=== PATIENT | male | born 1940 | race Caucasian/White ===

== ENCOUNTER 2022-12-05 08:46 | Outpatient (CLI) | payer MEDICARE, OTHER | END 2022-12-05 08:47 | disposition critical access hospital (66) | LOC: EMS 08:46 | DX: R55 Syncope and collapse (principal) | CPT/HCPCS: A0425; A0429 ==

== ENCOUNTER 2022-12-05 09:13 | Emergency (ER) | payer MEDICARE, OTHER ==
[2022-12-05] MEDS ORDERED: SODIUM CHLORIDE 0.9% 1,000 ML IV STA (09:23)
--- NOTE | 2022-12-05 09:25 | ED Physician Documentation ---
PD HPI SYNCOPE - Stated complaint Stated Complaint: SYNCOPE W/DIARRHEA - Chief complaint Chief Complaint: Neuro - History obtained from History obtained from: Patient, EMS - Additional information Additional information: Mr. Rajesh Lancaster ("Jamel" with a silent "K") 82-year-old gentleman with history of hypertension, otherwise healthy without any history of heart problems. He was feeling ill earlier in the week with diarrhea which is since resolved but he does not feel like he was keeping up with fluids. 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 No associated chest pain or trouble breathing. He feels back to normal now. PD PAST MEDICAL HISTORY - Allergies Allergies/Adverse Reactions: Allergies Allergy/AdvReac Type Severity Reaction Status Date / Time No Known Drug Allergies Allergy Verified 12/05/22 09:20 PD ED PE NORMAL - Vitals Vital signs reviewed: Yes - General General: Alert and oriented X 3, No acute distress - HEENT HEENT: Pharynx benign - Neck Neck: Supple, no meningeal sign - Cardiac Cardiac: RRR, No murmur - Respiratory Respiratory: No respiratory distress, Clear bilaterally - Abdomen Abdomen: Non tender - Extremities Extremities: No edema, No calf tenderness / cord - Neuro Neuro: Alert and oriented X 3 Eye Opening: Spontaneous Motor: Obeys Commands Verbal: Oriented GCS Score: 15 Results - Vitals Vitals: Vital Signs - 24 hr 12/05/22 09:15 Temperature 36.2 C L Heart Rate 63 Respiratory 18 Rate Blood Pressure 150/87 H O2 Saturation 98 Oxygen O2 Source Room air - EKG (time done) 0912 EKG releavant findings:: EKG personally interpreted by author of this note. Relevant findings are: Rate: Rate (enter#) (61) Rhythm: NSR [place]: Normal Intervals: Normal NM, RBBB QRS: Normal Ischemia: Normal ST segments - Labs Labs: Laboratory Tests 12/05/22 12/05/22 09:40 09:40 WBC 6.9 RBC 4.55 L Hgb 13.4 L Hct 41.3 L MCV 90.8 MCH 29.5 MCHC 32.4 RDW 13.6 Plt Count 261 MPV 8.7 Neut # (Auto) 5.1 Lymph # (Auto) 1.1 L [place] # (Auto) 0.6 Eos # (Auto) 0.1 Baso # (Auto) 0.0 Absolute Nucleated RBC 0.00 Nucleated RBC % 0.0 Sodium 140 Potassium 3.8 Chloride 107 Carbon Dioxide 26 Anion Gap 7.0 BUN 31 H Creatinine 1.2 Estimated GFR (MDRD) 58 L Glucose 117 H Calcium 9.3 Magnesium 1.8 Total Bilirubin 0.9 AST 14 ALT 14 Alkaline Phosphatase 71 Total Protein 6.5 Albumin 4.0 Globulin 2.5 Albumin/Globulin Ratio 1.6 PD Medical Decision Making - ED course ED course: 82-year-old gentleman had a syncopal episode. This was preceded by diarrheal illness earlier in the week and he does feel dehydrated. He was not injured and there are no other concerning symptoms such as chest pain or trouble breathing. He has a right bundle branch block but this is probably chronic. Otherwise his work-up shows he is very mildly anemic with high BUN, likely related to dehydration. He has no symptoms of GI bleeding. He was hydrated with 1 L of normal saline. Departure - Departure Disposition: 01 Home, Self Care Clinical Impression: Dehydration Syncope Qualifiers: Syncope type: unspecified Qualified Code(s): R55 - Syncope and collapse Condition: Good Record reviewed to determine appropriate education?: Yes Instructions: ED Fainting Unkn Cause, ED Dehydration Comments: Work-up demonstrates that you are mildly anemic and mildly dehydrated. Otherwise everything is looking okay other than noting that you do have a right bundle branch block on EKG which is very unlikely to be related to the current issue. Should be noted to your physician though. Return for new or worsening symptoms, follow-up with your primary care doctor, next available appointment. Drink plenty of fluids. Take it easy for the rest of the day. Forms: PCP List
[2022-12-05 09:44] LABS: BASOPHILS % (AUTO) 0.3 %; EOSINOPHILS # (AUTO) 0.1 10^3/uL (0.0-0.7); EOSINOPHILS % (AUTO) 0.9 %; HCT - HEMATOCRIT 41.3 % (42.0-52.0); HGB - HEMOGLOBIN 13.4 g/dL (14.0-18.0); LYMPHOCYTES # (AUTO) 1.1 10^3/uL (1.5-3.5); LYMPHOCYTES % (AUTO) 16.1 %; MEAN CORPUSCULAR HEMOGLOBIN 29.5 pg (27.0-31.0); MEAN CORPUSCULAR HGB CONC 32.4 g/dL (32.0-36.0); MEAN CORPUSCULAR VOLUME 90.8 fL (80.0-94.0); MEAN PLATELET VOLUME 8.7 fL (7.4-11.4); MONOCYTES # (AUTO) 0.6 10^3/uL (0.0-1.0); NEUTROPHILS # (AUTO) 5.1 10^3/uL (1.5-6.6); NEUTROPHILS % (AUTO) 73.4 %; PLT - PLATELET COUNT 261 10^3/uL (130-450); RED BLOOD COUNT 4.55 10^6/uL (4.70-6.10); RED CELL DISTRIBUTION WIDTH 13.6 % (12.0-15.0); WHITE BLOOD COUNT 6.9 x10^3/uL (4.8-10.8)
[2022-12-05 09:58] LABS: ALBUMIN/GLOBULIN RATIO 1.6 (1.0-2.2); BILIRUBIN,TOTAL 0.9 mg/dL (0.2-1.0); CALCIUM 9.3 mg/dL (8.5-10.3); CREATININE 1.2 mg/dL (0.6-1.3); MAGNESIUM 1.8 mg/dL (1.7-2.3); POTASSIUM 3.8 mmol/L (3.5-4.5); TOTAL PROTEIN 6.5 g/dL (6.4-8.9)
[2022-12-05 10:29] VITALS: BP 134/79; O2SAT 100
== END 2022-12-05 10:18 | disposition home or self-care (01) ==
LOC: EDUNIT# → ED 09:13
DX: E86.0 Dehydration (principal); R55 Syncope and collapse; I10 Essential (primary) hypertension
CPT/HCPCS: 36415; 80053; 83735; 85025; 93005; 96360; 99284

== ENCOUNTER 2023-01-09 08:35 | Outpatient (CLI) | payer MEDICARE, OTHER | END 2023-01-09 23:59 | disposition critical access hospital (66) | LOC: EMS 08:35 | DX: R55 Syncope and collapse (principal) | CPT/HCPCS: A0425; A0429 ==

== ENCOUNTER 2023-01-09 08:58 | Emergency (ER) | payer MEDICARE, OTHER ==
--- NOTE | 2023-01-09 09:06 | ED Physician Documentation ---
PD HPI SYNCOPE - Stated complaint Stated Complaint: SYNCOPE - Chief complaint Chief Complaint: Neuro - History obtained from History obtained from: Patient, EMS - Additional information Additional information: 82-year-old gentleman presents by ambulance for syncope. He had a similar episode about a month ago. Today he was in [employer] and he was sitting and felt like he had to have a bowel movement with lower abdominal cramps and then passed out. There is no chest pain or trouble breathing. He feels fine now. Did not get injured. He had a similar episode, also ensures 3 weeks ago, at which time he was found to be mildly anemic with a hemoglobin of 13.4, right bundle branch block and had some prerenal azotemia and was given some IV fluids. He did see his primary care physician in the interim who did not perform any further diagnostics and recommended watchful waiting. PD PAST MEDICAL HISTORY - Past Medical History Past Medical History: Yes Cardiovascular: Hypertension Respiratory: None Neuro: None Endocrine/Autoimmune: HyPOthyroidism GI: None : None HEENT: None Psych: None Musculoskeletal: Osteoarthritis Derm: None - Past Surgical History Past Surgical History: No - Present Medications Home Medications: Ambulatory Orders Medication Instructions Recorded Confirmed Levothyroxine [Synthroid] 75 mcg PO QDAC 01/09/23 01/09/23 Losartan/Hydrochlorothiazide 1 each PO DAILY 01/09/23 01/09/23 [Losartan-Hctz 100-12.5 mg Tab] Sertraline [Zoloft] 25 mg PO DAILY 01/09/23 01/09/23 hydrOXYzine HCL [Hydroxyzine HCl] 25 mg PO HS 01/09/23 01/09/23 - Allergies Allergies/Adverse Reactions: Allergies Allergy/AdvReac Type Severity Reaction Status Date / Time No Known Drug Allergies Allergy Verified 01/09/23 09:02 - Social History Does the pt smoke?: No Smoking Status: Former smoker Does the pt drink ETOH?: No Does the pt have substance abuse?: No - Immunizations Immunizations are current?: Yes PD ED PE NORMAL - Vitals Vital signs reviewed: Yes - General General: Alert and oriented X 3, No acute distress - HEENT HEENT: PERRL, EOMI - Neck Neck: Supple, no meningeal sign, No bony TTP - Cardiac Cardiac: RRR, No murmur - Respiratory Respiratory: No respiratory distress, Clear bilaterally - Abdomen Abdomen: Non tender - Derm Derm: No rash - Extremities Extremities: No edema, No calf tenderness / cord - Neuro Neuro: Alert and oriented X 3, Normal speech Results - Vitals Vitals: Vital Signs - 24 hr 01/09/23 01/09/23 09:02 10:24 Temperature 36.1 C L Heart Rate 67 63 Respiratory 12 12 Rate Blood Pressure 147/85 H 123/83 H O2 Saturation 97 99 Oxygen O2 Source Room air - EKG (time done) 0902 EKG releavant findings:: EKG personally interpreted by author of this note. Relevant findings are: Rate: Rate (enter#) (64) Rhythm: NSR (w pvcs) Carbon: Normal Intervals: RBBB Ischemia: Normal ST segments - Labs Labs: Laboratory Tests 01/09/23 01/09/23 01/09/23 09:20 09:20 09:20 WBC 8.0 RBC 4.35 L Hgb 12.6 L Hct 39.0 L MCV 89.7 MCH 29.0 MCHC 32.3 RDW 13.8 Plt Count 260 MPV 8.6 Neut # (Auto) 6.1 Lymph # (Auto) 1.1 L [place] # (Auto) 0.7 Eos # (Auto) 0.1 Baso # (Auto) 0.0 Absolute Nucleated RBC 0.00 Nucleated RBC % 0.0 Sodium 137 Potassium 3.7 Chloride 104 Carbon Dioxide 27 Anion Gap 6.0 BUN 25 H Creatinine 1.1 Estimated GFR (MDRD) 64 L Glucose 127 H Calcium 9.0 Magnesium 1.8 Total Bilirubin 0.8 AST 17 ALT 15 Alkaline Phosphatase 68 Troponin I High Sens 5.6 Total Protein 6.2 L Albumin 4.0 Globulin 2.2 Albumin/Globulin Ratio 1.8 PD Medical Decision Making - ED course ED course: 82-year-old gentleman with recurrent syncope, second time in about a month. Work-up here showing mild anemia, a little worse than prior, and negative troponin. Unremarkable CMP. He was asymptomatic here. Discussed the need for close follow-up and likely echo/cardiac monitoring. Departure - Departure Disposition: 01 Home, Self Care Clinical Impression: Syncope Qualifiers: Syncope type: unspecified Qualified Code(s): R55 - Syncope and collapse Anemia Qualifiers: Anemia type: unspecified type Qualified Code(s): D64.9 - Anemia, unspecified Condition: Good Record reviewed to determine appropriate education?: Yes Instructions: ED Fainting Unkn Cause Comments: You are a little more anemic than you were on your visit December 05. Given that this is your second episode of passing out in a little over a month you must follow-up with your primary care physician, next available appointment. I would recommend a consider echocardiogram and prolonged cardiac monitoring with a Holter monitor or Zio patch or similar product. Return for new or worsening symptoms. Forms: PCP List Discharge Date/Time: 01/09/23 10:45
[2023-01-09 09:25] LABS: BASOPHILS % (AUTO) 0.2 %; EOSINOPHILS # (AUTO) 0.1 10^3/uL (0.0-0.7); EOSINOPHILS % (AUTO) 0.6 %; HGB - HEMOGLOBIN 12.6 g/dL (14.0-18.0); LYMPHOCYTES # (AUTO) 1.1 10^3/uL (1.5-3.5); MEAN CORPUSCULAR HGB CONC 32.3 g/dL (32.0-36.0); MEAN CORPUSCULAR VOLUME 89.7 fL (80.0-94.0); MEAN PLATELET VOLUME 8.6 fL (7.4-11.4); MONOCYTES # (AUTO) 0.7 10^3/uL (0.0-1.0); MONOCYTES % (AUTO) 8.5 %; NEUTROPHILS # (AUTO) 6.1 10^3/uL (1.5-6.6); NEUTROPHILS % (AUTO) 76.5 %; PLT - PLATELET COUNT 260 10^3/uL (130-450); RED BLOOD COUNT 4.35 10^6/uL (4.70-6.10); RED CELL DISTRIBUTION WIDTH 13.8 % (12.0-15.0)
[2023-01-09 09:50] LABS: ALBUMIN/GLOBULIN RATIO 1.8 (1.0-2.2); BILIRUBIN,TOTAL 0.8 mg/dL (0.2-1.0); CREATININE 1.1 mg/dL (0.6-1.3); MAGNESIUM 1.8 mg/dL (1.7-2.3); POTASSIUM 3.7 mmol/L (3.5-4.5); TOTAL PROTEIN 6.2 g/dL (6.4-8.9)
[2023-01-09 10:32] VITALS: BP 123/83; O2SAT 99
== END 2023-01-09 10:45 | disposition home or self-care (01) ==
LOC: EDSEX → EDUNIT# → ED 08:58
DX: R55 Syncope and collapse (principal); D64.9 Anemia, unspecified; I10 Essential (primary) hypertension; E03.9 Hypothyroidism, unspecified; Z79.899 Other long term (current) drug therapy; Z87.891 Personal history of nicotine dependence
CPT/HCPCS: 36415; 80053; 83735; 84484; 85025; 93005; 99283; 99284